=== PATIENT | female | born 1985 | race Two or more races ===

== ENCOUNTER 2018-01-01 12:36 | Emergency (ER) | payer OTHER ==
[~2018-01-01] VITALS: Ht 154.9 cm; Wt 59.0 kg
[~2018-01-01 12:36] MED LIST: AMOXICILLIN250 MG
== END 2018-01-01 19:20 | disposition home or self-care (01) ==
LOC: ER 12:36
DX: N76.4 Abscess of vulva (principal)

== ENCOUNTER 2018-03-10 02:50 | Emergency (ER) | payer OTHER ==
[~2018-03-10] VITALS: Ht 157.5 cm; Wt 59.0 kg
[2018-03-10] MEDS ORDERED: LEVSIN/SL0.125 MG PO (09:37)
[2018-03-10] MEDS ORDERED: INTESTINEX680 M1 PO (09:37)
[2018-03-10] MEDS ORDERED: ZANTAC300 MG PO (09:37)
== END 2018-03-10 10:01 | disposition home or self-care (01) ==
LOC: ER 02:50
DX: R10.11 Right upper quadrant pain (principal)

== ENCOUNTER 2018-07-26 08:50 | Emergency (ER) | payer OTHER ==
[~2018-07-26] VITALS: Ht 157.5 cm; Wt 62.6 kg
[~2018-07-26 08:50] MED LIST changes: +INTESTINEX680 M1 PO; +LEVSIN/SL0.125 MG PO; +ZANTAC300 MG PO
== END 2018-07-26 13:59 | disposition home or self-care (01) ==
LOC: ER 08:50
DX: O21.8 Other vomiting complicating pregnancy (principal); O30.041 Twin pregnancy, dichorionic/diamniotic, first trimester; Z34.01 Encounter for supervision of normal first pregnancy, first trimester

== ENCOUNTER → 2018-08-17 | Emergency (ER) | payer OTHER ==
[~2018-08-17] VITALS: Ht 157.5 cm; Wt 62.6 kg
== END | disposition home or self-care (01) ==
LOC: ER 18:28
DX: K52.89 Other specified noninfective gastroenteritis and colitis (principal); E86.0 Dehydration

== ENCOUNTER 2018-09-22 09:12 | Outpatient (CLI) | payer OTHER | END 2018-09-22 09:16 | disposition home or self-care (01) | LOC: SONOGRAMA 09:12 → MAMO-SONO 09:15 → SONOGRAMA 09:16 | DX: Z34.00 Encounter for supervision of normal first pregnancy, unspecified trimester (principal) ==

== ENCOUNTER 2018-09-25 14:47 | Inpatient (IN) | payer OTHER ==
[~2018-09-25] VITALS: Ht 157.5 cm; Wt 57.6 kg
== END 2018-09-29 10:00 | disposition home or self-care (01) | DRG 833 ==
LOC: OBS/DEL 14:47 → LDR 14:48 → OBS/DEL 14:48 → LDR 18:14 → OB/GYN 18:14
PROVIDERS: ADMIT Specialist
PROC: BY4DZZZ Ultrasonography of Second Trimester, Multiple Gestation (ICD-10-PCS; principal; 2018-09-25)
PROC: 4A1HXCZ Monitoring of Products of Conception, Cardiac Rate, External Approach (ICD-10-PCS; 2018-09-25)
PROC: 8E0ZXY6 Isolation (ICD-10-PCS; 2018-09-25)
PROC: 3E0F7GC Introduction of Other Therapeutic Substance into Respiratory Tract, Via Natural or Artificial Opening (ICD-10-PCS; 2018-09-26)
PROC: 4A033R1 Measurement of Arterial Saturation, Peripheral, Percutaneous Approach (ICD-10-PCS; 2018-09-26)
DX: O26.892 Other specified pregnancy related conditions, second trimester (principal); J11.1 Influenza due to unidentified influenza virus with other respiratory manifestations; O21.1 Hyperemesis gravidarum with metabolic disturbance; Z34.02 Encounter for supervision of normal first pregnancy, second trimester

== ENCOUNTER 2018-11-10 20:58 | Inpatient (IN) | payer OTHER ==
[~2018-11-10] VITALS: Ht 157.5 cm; Wt 61.7 kg
[2018-11-10] MEDS ORDERED: PRENATAL TABLE1 EAC1 PO (21:03)
[2018-11-12] MEDS ORDERED: NIFEDIPINE ER30 MG PO (08:54)
== END 2018-11-12 10:24 | disposition home or self-care (01) | DRG 833 ==
LOC: OB/GYN 20:58 → LDR 20:58 → OB/GYN 11-11 10:08
PROVIDERS: ADMIT Specialist
PROC: BU4CZZZ Ultrasonography of Uterus and Ovaries (ICD-10-PCS; principal; 2018-11-10)
PROC: BY4CZZZ Ultrasonography of Second Trimester, Single Fetus (ICD-10-PCS; 2018-11-10)
PROC: 4A1HXCZ Monitoring of Products of Conception, Cardiac Rate, External Approach (ICD-10-PCS; 2018-11-10)
DX: O60.02 Preterm labor without delivery, second trimester (principal); Z34.02 Encounter for supervision of normal first pregnancy, second trimester

== ENCOUNTER 2018-11-21 19:37 | Outpatient (CLI) | payer OTHER ==
[~2018-11-21 19:37] MED LIST changes: +NIFEDIPINE ER30 MG PO; +PRENATAL TABLE1 EAC1 PO
[2018-11-21] MEDS ORDERED: PEPCID20 MG PO (20:13)
[2018-11-22] MEDS ORDERED: NIFEDIPINE ER30 MG PO (10:06)
== END 2018-11-22 12:52 | disposition home or self-care (01) ==
LOC: OBS/DEL 19:37
DX: O60.02 Preterm labor without delivery, second trimester (principal); O30.042 Twin pregnancy, dichorionic/diamniotic, second trimester; Z34.02 Encounter for supervision of normal first pregnancy, second trimester

== ENCOUNTER 2018-12-27 21:15 | Inpatient (IN) | payer OTHER ==
[~2018-12-27] VITALS: Ht 157.5 cm; Wt 1597.0 kg
[~2018-12-27 21:15] MED LIST changes: +PEPCID20 MG PO
[2019-01-04] MEDS ORDERED: LABETALOL HCL100 MG PO (10:17)
== END 2019-01-04 13:51 | disposition home or self-care (01) | DRG 788 ==
LOC: OBS/DEL 21:15 → LDR 12-28 08:17 → OB/GYN 12-28 08:17 → OBS/DEL 12-28 08:17 → OB/GYN 12-29 14:28 → LDR 12-30 11:51 → OB/GYN 01-01 08:49
PROVIDERS: ADMIT Specialist
PROC: 10D00Z1 Extraction of Products of Conception, Low, Open Approach (ICD-10-PCS; principal; 2018-12-28)
PROC: 4A1HXCZ Monitoring of Products of Conception, Cardiac Rate, External Approach (ICD-10-PCS; 2018-12-28)
PROC: 0T9B70Z Drainage of Bladder with Drainage Device, Via Natural or Artificial Opening (ICD-10-PCS; 2018-12-31)
DX: O60.14X0 Preterm labor third trimester with preterm delivery third trimester, not applicable or unspecified (principal); O14.14 Severe pre-eclampsia complicating childbirth; O64.1XX0 Obstructed labor due to breech presentation, not applicable or unspecified; O30.003 Twin pregnancy, unspecified number of placenta and unspecified number of amniotic sacs, third trimester; Z3A.32 32 weeks gestation of pregnancy; Z37.2 Twins, both liveborn

== ENCOUNTER 2019-01-13 00:37 | Emergency (ER) | payer OTHER ==
[~2019-01-13] VITALS: Ht 157.5 cm; Wt 68.0 kg
[~2019-01-13 00:37] MED LIST changes: +LABETALOL HCL100 MG PO
[2019-01-13] MEDS ORDERED: KETO10TA2 PO (03:23)
[2019-01-13] MEDS ORDERED: PEPCID AC20 MG PO (03:23)
== END 2019-01-13 03:34 | disposition home or self-care (01) ==
LOC: ER 00:37
DX: R07.89 Other chest pain (principal); M94.0 Chondrocostal junction syndrome [Tietze]; K21.9 Gastro-esophageal reflux disease without esophagitis

== ENCOUNTER 2021-11-19 16:07 | Emergency (ER) | payer OTHER ==
[~2021-11-19] VITALS: Ht 157.5 cm; Wt 63.5 kg
[~2021-11-19 16:07] MED LIST changes: +KETO10TA2 PO; +PEPCID AC20 MG PO
[2021-11-19] MEDS ORDERED: UTIX PO (21:59)
== END 2021-11-19 22:41 ==
LOC: ER 16:07
DX: N39.0 Urinary tract infection, site not specified (principal); Z88.6 Allergy status to analgesic agent